=== PATIENT | female | born 1980 | race Caucasian/White ===

== ENCOUNTER 2019-05-18 18:31 | Emergency (ER) | payer OTHER ==
[2019-05-18 18:38] VITALS: TEMP 98.6; BMI 36.6
--- NOTE | 2019-05-18 19:06 | PDOC ---
History of Present Illness - General Chief Complaint: Blood Pressure Problem Stated Complaint: EVALUATION Time Seen by Provider: 05/18/19 19:05 History Source: Patient Exam Limitations: No Limitations - History of Present Illness Initial Comments: 05/18/19 19:41 Inga Arias is a 39yF w PMHx migraines, HTN, obesity presenting with high blood pressure. Has been having L side occipital headache for last 3 days w associated tiredness. Went to urgent care today, measured BP 180/120, sent to ED for further HTN management. Took excedrin this afternoon which relieved headache. Currently asymptomatic. Lost PCP 6 months ago, has not been taking HCTZ medication for last few months. Has been having increasingly frequent migraines w vision changes (L eye vision blots) past month. Denies fever, nausea /vomiting, SOB, chest/AB pain, urinary/bowel movement changes. Past History - Past Medical History Allergies/Adverse Reactions: Allergies Allergy/AdvReac Type Severity Reaction Status Date / Time No Known Allergies Allergy Verified 05/18/19 18:38 Home Medications: Ambulatory Orders No Home Medications 0 dose .ROUTE UTDICT 06/07/13 Ibuprofen [Motrin] 800 mg PO TID #20 tablet 06/08/13 Ondansetron [Zofran *Odt*] 4 mg SL TID #30 od.tablet 06/08/13 Hydrochlorothiazide [Hctz -] 25 mg PO DAILY #14 tablet 05/18/19 COPD: No - Psycho Social/Smoking Cessation Hx Smoking Status: No Smoking History: Never smoked Number of Cigarettes Smoked Daily: 0 Hx Alcohol Use: No Drug/Substance Use Hx: No Review of Systems - Review of Systems Constitutional: No: Chills, Unintentional Wgt. Loss HEENTM: Yes: Recent change in vision. No: Eye Pain, Nose Pain, Throat Pain, Mouth Pain Respiratory: No: Cough, Shortness of Breath Cardiac (ROS): No: Chest Pain, Palpitations, Syncope ABD/GI: No: Abdominal Distended, Constipated, Diarrhea, Nausea, Vomiting : No: Burning, Dysuria, Flank Pain, Hematuria Musculoskeletal: No: Back Pain, Joint Pain, Muscle Pain, Muscle Weakness Integumentary: No: Bruising, Flushing, Lesions Neurological: Yes: Headache. No: Numbness, Seizure, Tingling, Tremors Psychiatric: No: Anxiety, Depression Endocrine: No: Excessive Sweating, Flushing, Intolerance to Cold, Intolerance to Heat Hematologic/Lymphatic: No: Anemia, Blood Clots *Physical Exam - Vital Signs Last Vital Signs Temp Pulse Resp BP Pulse Ox 98.6 F 74 14 166/108 H 98 05/18/19 18:36 05/18/19 18:36 05/18/19 18:36 05/18/19 18:36 05/18/19 18:36 - Physical Exam General Appearance: Yes: Nourished, Appropriately Dressed. No: Apparent Distress HEENT: positive: EOMI, MIREYA, Normal Voice, Hearing Grossly Normal. negative: Scleral Icterus (R), Scleral Icterus (L), Rhinorrhea, Sinus Tenderness Respiratory/Chest: positive: Lungs Clear, Normal Breath Sounds. negative: Chest Tender, Respiratory Distress, Crackles, Rales, Rhonchi, Stridor, Wheezing Cardiovascular: positive: Regular Rhythm, Regular Rate, S1, S2. negative: Edema , Murmur Integumentary: positive: Normal Color Neurologic: positive: field specialist II-XII NML intact, Fully Oriented, Alert, Normal Mood/ Affect, Normal Response, Motor Strength 5/5, Responsive. negative: Facial Droop , Numbness, Sensory Deficit, Confused, Disoriented ED Treatment Course - LABORATORY CBC & Chemistry Diagram: 05/18/19 20:25 05/18/19 20:25 Medical Decision Making - Medical Decision Making 05/18/19 19:36 CBC CMP trop UA HCG EKG EKG shows NSR, HR 68, QTc 448, no ST changes Given 25 HCTZ, repeat BP 183/107. Given 5 norvasc lowered to 161/87 CBC, CMP, UA normal, neg HCG, neg trop --- Inga Arias is a 39yF w PMHx migraines, HTN, obesity presenting with hypertensive emergency d/t medication non compliance. Asymptomatic in ED. No evidence of ACS (neg trop, NSR EKG). Not . BP lowered to 161/87 after 25 HCTZ, 5 norvasc. D/c home w PCP referral, 2 weeks 25-HCTZ prescription, work leave notice. Discharge - Discharge Information Problems reviewed: Yes Clinical Impression/Diagnosis: Hypertensive emergency Condition: Good Disposition: HOME - Admission No - Additional Discharge Information Prescriptions: Hydrochlorothiazide [Hctz -] 25 mg PO DAILY #14 tablet - Follow up/Referral Referrals: CARA,SHADI Giron MD [Staff Physician] - - Patient Discharge Instructions Patient Printed Discharge Instructions: DI for High Blood Pressure Additional Instructions: You were seen for high blood pressure. Your labs did not show anything concerning. You were given medication to lower your blood pressure Please make an appointment with the referred primary care group to address your blood pressure. Take the prescribed HTCZ once per day until you see the doctor. Come back to the ED if you have worsening headache, vision change, or throw up. - Post Discharge Activity Work/Back to School Note: Back to Work
[2019-05-18] MEDS ORDERED: HYDROCHLOROTHIAZIDE 12.5 MG CAPSULE (FP) PO ONE (19:36)
[2019-05-18] MEDS ORDERED: HYDROCHLOROTHIAZIDE 25 MG TABLET (FP) ONE ×2 (19:49→19:59)
[2019-05-18] MEDS ORDERED: HYDROCHLOROTHIAZIDE 25 MG TABLET (FP) PO ONE (20:14)
--- NOTE | 2019-05-18 20:19 | PDOC ---
Documentation entered by Destini Badillo SCRIBE, acting as scribe for Deysi Chery DO. Deysi Chery DO: This documentation has been prepared by the Justino ferrell Adrianna, SCRIBE, under my direction and personally reviewed by me in its entirety. I confirm that the documentation accurately reflects all work, treatment, procedures, and medical decision making performed by me. Attending Attestation - Resident Resident Name: Parminder Daniels - ED Attending Attestation I have performed the following: I have examined & evaluated the patient, The case was reviewed & discussed with the resident, I agree w/resident's findings & plan, Exceptions are as noted - HPI HPI: The patient is a 39 year old female, with a significant PMH of migraines, HTN, and obesity, who presents to the ED for evaluation of hypertension. Patient has been complaining of a left-sided occipital headache and lethargy for the past 3 days, for which she went to Urgent Care today and was told her BP was 180/20. She was advised to come to the ED for further evaluation. Patient has not been compliant with her HTN medications for a few months secondary to losing his PCP. Denies any complaints while in the ED. Denies fever, chills, cp, SOB, nausea, vomit, diarrhea, constipation, hematuria , dysuria. Allergies: NKA, NKDA Surgical History: None reported Social History: Denies EtOH, tobacco, or illicit drug use - Physicial Exam PE: Constitutional: Awake, alert, oriented. No acute distress. Head: Normocephalic. Atraumatic Eyes: PERRL. EOMI. Conjunctivae are not pale. ENT: Mucous membranes are moist and intact. Posterior pharynx without exudates or erythema. Uvula midline. Neck: Supple. Full ROM. No lymphadenopathy. Cardiovascular: Regular rate. Regular rhythm. S1, S2 regular. Distal pulses are 2+ and symmetric. Pulmonary/Chest: No evidence of respiratory distress. Clear to auscultation bilaterally No wheezing, rales or rhonchi. Abdominal: +Obese. Soft and non-distended. There is no tenderness. No rebound , guarding or rigidity. No organomegaly. No palpable masses. Good bowel sounds. Back: No CVA tenderness. Musculoskeletal: +Trace edema of the bilateral lower extremities. No cyanosis. No clubbing. Full range of motion in all extremities. Nocalf tenderness. Radial/pedal pulses are intact and 2+ bilaterally Skin: Skin is warm and dry. No petechiae. No purpura. Neurological: Alert and oriented to person, place, and time. Cranial nerves II -XII are grossly intact. Normal speech. Strength is grossly symmetric. No sensory deficits. Psychiatric: Good eye contact. Normal interaction, affect and behavior. - Medical Decision Making 05/18/19 20:17 I, Dr. Deysi Chery, DO, attest that this document has been prepared under my direction and personally reviewed by me in its entirety. I further attest, that it accurately reflects all work, treatment, procedures and medical decision -making performed by me. a/p: 39yo female from Urgent Care for eval of elevated bp -pt with hx of htn, but is noncompliant - has not had HCTZ in 6m -pt states she has had a roberts x 3 days - resolved currently -pt states she went to urgent care for eval and they would not Rx meds for bp -pt denies cp/sob -neuro intact -trace edema LE -will send labs, ekg -will give hctz in ER -will monitor and reassess -pt is nontoxic in appearance 05/18/19 20:57 upreg neg cbc reviewed chem pending 05/18/19 21:30 trop neg renal function normal lft normal will give norvasc for elevated bp 05/18/19 22:28 repeat bp improved no roberts pt stable for dc to home Heart Score/ECG Review - ECG Intrepretation Comment:: 05/18/19 20:19 sinus at 68, nl axis, nl interval, no acute st/t wave findings
[2019-05-18 20:39] LABS: BASO % 0.9 % (0-2.0); EOS % 4.1 % (0-4.5); HEMATOCRIT 42.7 % (32.4-45.2); HEMOGLOBIN 14.1 GM/dL (10.7-15.3); LYMPH % 34.7 % (8-40); MCH 27.3 pg (25.7-33.7); MEAN CELL VOLUME 82.6 fl (80-96); MEAN PLT VOLUME 8.2 fl (7.5-11.1); NEUT % 53.3 % (42.8-82.8); PLATELET COUNT 320 K/MM3 (134-434); RBC 5.17 M/mm3 (3.60-5.2); RDW 15.7 % (11.6-15.6); WHITE BLOOD COUNT 8.3 K/mm3 (4.0-10.0)
[2019-05-18 20:52] LABS: EPI CELLS 0.4 /HPF (0-5/HPF); HYALINE CASTS 0 /lpf (0-8); URINE APPEARANCE CLEAR; URINE BACTERIA 8.4 /hpf (NEGATIVE); URINE BILIRUBIN NEGATIVE (NEGATIVE); URINE COLOR YELLOW; URINE GLUCOSE (UA) NEGATIVE (NEGATIVE); URINE KETONE NEGATIVE (NEGATIVE); URINE LEUK ESTERASE NEGATIVE (NEGATIVE); URINE NITRITE NEGATIVE (NEGATIVE); URINE PROTEIN NEGATIVE (NEGATIVE); URINE RBC 2 /hpf (0-4); URINE WBC 0 /hpf (0-5)
[2019-05-18 21:11] LABS: ALBUMIN 3.8 g/dl (3.4-5.0); BILIRUBIN,TOTAL 0.4 mg/dL (0.2-1); BLOOD UREA NITROGEN 14.2 mg/dL (7-18); CALCIUM 8.9 mg/dL (8.5-10.1); CREATININE 0.8 mg/dL (0.55-1.3); TOT PROT 7.8 g/dl (6.4-8.2)
[2019-05-18] MEDS ORDERED: amLODIPine BESYLATE 5 MG TABLET (FP) PO ONE (21:26)
[2019-05-18] MEDS ORDERED: amLODIPine BESYLATE 5 MG TABLET (FP) ONE (21:50)
[2019-05-18 22:20] VITALS: BP 161/87; PULSE 88
--- NOTE | 2019-05-19 12:18 | EKG ---
Test Reason : Blood Pressure : / mmHG Vent. Rate : 068 BPM Atrial Rate : 068 BPM P-R Int : 172 ms QRS Dur : 094 ms QT Int : 422 ms P-R-T Axes : 053 037 033 degrees QTc Int : 448 ms NORMAL SINUS RHYTHM POSSIBLE LEFT ATRIAL ENLARGEMENT BORDERLINE ECG NO PREVIOUS ECGS AVAILABLE Confirmed by JASON RODRIGUEZ, HEATH ([id number]) on 05/19/2019 12:18:17 PM Referred By: Confirmed By:HEATH GOMEZ MD
== END 2019-05-18 23:05 | disposition home or self-care (01) ==
LOC: JER 18:31
DX: I16.0 Hypertensive urgency (principal); I10 Essential (primary) hypertension; E66.9 Obesity, unspecified; Z68.36 Body mass index [BMI] 36.0-36.9, adult
CPT/HCPCS: 36415; 80053; 81003; 84484; 84703; 85025; 93005; 93010; 99284-25